=== PATIENT | male | born 1995 | race African-American/Black ===

== ENCOUNTER 2016-12-27 21:09 | Emergency (ER) | payer MEDICAID, OTHER ==
[~2016-12-27] VITALS: Ht 172.7 cm; Wt 54.4 kg
[~2016-12-27 21:09] MED LIST: GABAPENTIN600 MG ORAL; NORCO 5-325 TA1 EACH ORAL; SILVADENE CREAM50 GM TOP
[2016-12-27] MEDS ORDERED: AMOXICILLIN500 MG ORAL (21:42)
[2016-12-27] MEDS ORDERED: IBUPROFEN600 MG ORAL (21:42)
--- NOTE | 2016-12-27 21:43 | Emergency Room Report ---
History of Present Illness General Chief Complaint: Sore Throat Source: Patient Present Illness HPI Is a 21-year-old male with no past medical history. He presents with sore throat. Onset today. No fever chills but no nausea no vomiting. Worse with swallowing. No other complaint. Allergies: Coded Allergies: No Known Allergies (Unverified , 04/01/13) Patient History Past Medical History: see triage record, old chart reviewed Past Surgical History: none Pertinent Family History: none Social History: Denies: smoking Immunizations: other Reviewed Nursing Documentation: PMH: Agreed, PSxH: Agreed Nursing Documentation-PMH Past Medical History: No Stated History Review of Systems Eye: Denies: blurred vision, eye pain ENT: Reports: throat pain, Denies: ear pain, nose congestion, throat swelling Respiratory: Denies: cough, shortness of breath Cardiovascular: Denies: chest pain, palpitations Gastrointestinal: Denies: abdominal pain, diarrhea, nausea, vomiting Musculoskeletal: Denies: back pain, joint pain Skin: Denies: rash Neurological: Denies: headache, numbness Endocrine: Denies: increased thirst, increased urine Hematologic/Lymphatic: Denies: easy bruising All Other Systems: negative except mentioned in HPI Physical Exam Vital Signs Date Time Temp Pulse Resp B/P Pulse Ox O2 Delivery O2 Flow Rate FiO2 12/27/16 21:22 98.1 58 16 119/71 99 Room Air vitals normal Sp02 EP Interpretation: reviewed, normal General Appearance: well appearing, no apparent distress, alert Head: normocephalic, atraumatic Eyes: bilateral eye EOMI, bilateral eye PERRL ENT: hearing grossly normal, normal pharynx, pharyngeal erythema, tonsillar exudate, other - No trismus Neck: full range of motion, supple, no meningismus Respiratory: chest non-tender, lungs clear, normal breath sounds Cardiovascular #1: regular rate, rhythm, no murmur Gastrointestinal: normal bowel sounds, non tender, no mass, no organomegaly, no bruit, non-distended Musculoskeletal: back normal, gait/station normal, normal range of motion Psychiatric: mood/affect normal Skin: warm/dry Medical Decision Making Diagnostic Impression: Primary Impression: Tonsillitis with exudate ER Course Patient with exudative tonsillitis. Most likely strep. No evidence of peritonsillar abscess or retropharyngeal abscess or Reuben angina. We'll discharge him. Last Vital Signs Date Time Temp Pulse Resp B/P Pulse Ox O2 Delivery O2 Flow Rate FiO2 12/27/16 21:22 98.1 58 16 119/71 99 Room Air Status: unchanged Disposition: HOME, SELF-CARE Condition: Stable Scripts Ibuprofen* (MOTRIN*) 600 Mg Tablet 600 MG ORAL Q8H Y for For Pain, #30 TAB 0 Refills Prov: TAYLOR LOVE M.D. 12/27/16 Amoxicillin* (AMOXIL*) 500 Mg Capsule 500 MG ORAL THREE TIMES A DAY, #21 CAP Prov: TAYLOR LOVE M.D. 12/27/16 Patient Instructions: Tonsillitis Additional Instructions: Followup with your Dr. in 7 days. Return if symptom worsen. TAYLOR LOVE M.D. Dec 27, 2016 21:43
[2016-12-27 21:47] VITALS: BP_SYST 119; BP_SYST 124; BP_DIAS 71; BP_DIAS 75
== END 2016-12-27 22:00 | disposition home or self-care (01) ==
LOC: EMR 22:00
DX: J03.90 Acute tonsillitis, unspecified (principal)
CPT/HCPCS: 99284